=== PATIENT | male | born 1985 | race Caucasian/White ===

== ENCOUNTER 2020-09-25 02:58 | Observation (INO) | payer OTHER, SELFPAY ==
[2020-09-25] VITALS (10 sets, daily range): BP systolic 109–137; BP diastolic 66–77; PULSE 73–117; RESP 16–18; TEMP 36.2–37.8; O2SAT 97–100; BMI 25.2
--- NOTE | ~2020-09-25 | XR_ITS ---
EXAMINATION: XR chest 2V DATE: 09/25/2020 10:00 INDICATION: Shortness of breath, possible aspiration TECHNIQUE: AP and lateral views of the chest are obtained. COMPARISON: None available FINDINGS: There are airspace opacities of the lingula and left upper lobe. There is no pleural effusi on or pneumothorax. The cardiomediastinal silhouette is normal. The visualized bones and soft tissues are unremarkable. IMPRESSION: 1. Lingular and left upper lobe airspace opacities, consistent with pneumonia. Reviewed, dictated and finalized at location A. [employer] SE[employer]
--- NOTE | 2020-09-25 01:50 | ADMGEN ---
This patient, Travis Medina, was admitted to 3 [facility] Surg Room 325-01. Patient/family oriented to hospital policies and general routines including ID bracelet, bed and alarms, visiting hours, pain management, procedures, bathroom and other care routines, personal items, smoking policy, room service/diet, and visiting hours. Information on how to activate the Rapid Response Team has been discussed. Patient/Family are encouraged to report perceived risks to care and to ask questions if they do not understand what they are told or what they should do.
--- NOTE | 2020-09-25 02:08 | PM.IMHP ---
H&P: HPI History of Present Illness Date/Time: 09/25/20 02:08 Chief Complaint: Seizure Narrative: Travis Medina is a 34 year old male past medical history of sinus tachycardia and seizure disorder presents to the ED with complaints of seizure. Was sitting at home watching TV when he had a tonic-clonic seizure witnessed by his . The seizure stopped on its own. Patient had missed doses of his seizure medications for last 3-4 days because the pharmacy was closed for the holidays. His seizure medications are managed by his PCP and no recent changes. He states his seizures onset were in adulthood and is unclear as to the etiology of what causes them. He may have bit his lip during the seizure with blood in his mouth. Currently on my exam patient is asymptomatic. Patient did not take any vitamins or any other substances. Patient denies smoking or alcohol use. The last time he had a seizure was in April. In the ED: Patient was given ibuprofen, ketorolac, Zofran x2, Compazine, fosphenytoin loading, Zosyn for aspiration. Chest x-ray shows mild suddenly opacity left perihilar region possibly due to aspiration. Telemetry shows normal sinus rhythm rate 117. In the ED patient stated he had a headache and received ibuprofen, ketorolac. For his seizures and missing doses he was loaded with fosphenytoin, Dilantin level was undetected. For the aspiration seen on chest x-ray was given Zosyn, WBC also elevated at 19.5. Potassium 3.2. patient was admitted to [facility] for high-level care. Review of Systems Review of Systems: Narrative: Constitutional: No Fever, No Chills, No Night Sweats, No Fatigue, No Malaise ENT/Mouth: No Hearing Changes, No Ear Pain, No Nasal Congestion, No Sinus Pain, No Hoarseness, No sore throat, No Rhinorrhea, No Swallowing Difficulty Eyes: No Eye Pain, No Redness, No Vision Changes Cardiovascular: No Chest Pain, No Palpitations, No Dyspnea on Exertion, No Orthopnea, No Claudication, No Edema Respiratory: No Cough, No Sputum, No Wheezing, No Shortness of Breath Gastrointestinal: No Nausea, No Vomiting, No Diarrhea, No Constipation, No Abdominal Pain, No Heartburn, No Hematochezia, No Melena Genitourinary: No Dysuria, No Urinary Frequency, No Hematuria, No Urinary Incontinence, No Urgency Musculoskeletal: No Arthralgias, No Myalgias, No Joint Swelling, No Joint Stiffness, No Back Pain Skin: No Skin Lesions, No Pruritis, No Hair Changes Neuro: No Weakness, No Numbness, No Paresthesias, No Loss of Consciousness, No Syncope, No Dizziness, No Headache Psych: No Anxiety/Panic, No Depression, No Insomnia Heme: No Bruising, No Bleeding Lymph: No Adenopathy Endocrine: No Polyuria, No Polydipsia, No Temperature Intolerance [facility] Past Medical History Medical History (Updated 09/25/20 @ 03:20 by Olvin Waldrop DO) 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 His [id number] helps out since he is unemployed. Smoking packs per day: 0.5 Smoking cigarettes per day: 10.0 Years smoked: 10 Smoking pack-years: 5.00 Smoking status: Former smoker Tobacco type: cigarettes Alcohol intake: never Substance use: never Living arrangements: with family Additional living arrangements comments: Lives with Occupation/Education: unemployed Gender identity (if verbalized by the patient): Male Sexual Orientation (if Verbalized by the Patient): Straight or Heterosexual Spiritual care concerns: No Meds Home Medications and Allergies Home Medications Medication Instructions Recorded Confirmed Type lacosamide [Vimpat] 100 mg PO BID 09/25/20 09/25/20 History metoprolol succinate 50 mg PO DAILY 09/25
[2020-09-25 07:00] LABS: Basophils Absolute Auto 0.1 K/mm3 (0.0-0.1); Basophils Percent Auto 0.3 % (0.2-1.2); Eosinophils Percent Auto 0.1 % (0-4.4); Hematocrit 42.3 % (42.0-52.0); Hemoglobin 14.6 g/dL (14.0-18.0); Immature Granulocyte Absolute 0.09 K/mm3 (0.00-0.031); Immature Granulocyte Percent A 0.5 % (0-0.5); Lymphocytes Absolute Auto 2.15 K/mm3 (0.9-3.2); Lymphocytes Percent Auto 11.6 % (18.3-44.2); Mean Corpuscular HGB Conc 34.5 g/dl (32-36); Mean Corpuscular Hemoglobin 28.9 pg (26-34); Mean Corpuscular Volume 83.8 fl (80-100); Mean Platelet Volume 9.2 fl (7.4-10.4); Monocytes Absolute Auto 1.7 K/mm3 (0.1-0.6); Monocytes Percent Auto 9.1 % (2.6-8.5); Neutrophils Absolute Auto 14.6 K/mm3 (1.3-6.7); Neutrophils Percent Auto 78.4 % (45.5-73.1); Platelet Count Result 251 k/mm3 (150-375); Red Blood Count 5.05 M/mm3 (4.6-6.20); Red Cell Distribution Width 13.1 % (11.5-14.5); White Blood Count 18.6 K/mm3 (4.5-10.0)
[2020-09-25 07:20] LABS: Anion Gap 10 mmol/L (8-16); Blood Urea Nitrogen 19 mg/dL (9-20); Calcium 8.7 mg/dL (8.4-10.2); Carbon Dioxide 26 mmol/L (22-30); Chloride 103 mmol/L (98-107); Estimated CRCL calculation 95 ml/min; Estimated Glomerular Filt Rate > 60; Glucose 134 mg/dL (75-110); Magnesium 2.2 mg/dL (1.6-2.3); Potassium 3.7 mmol/L (3.4-5.0); Sodium 139 mmol/L (137-145)
[2020-09-25] MEDS: LACOSAMIDE (*CRX) 100 MG TABLET PO ×2 (07:55→15:50)
[2020-09-25] MEDS: PHENYTOIN SODIUM 100 MG CAP 200 MG PO ×2 (07:56→15:50)
[2020-09-25] MEDS: METOPROLOL SUCCINATE EXT REL 50 MG TABCR PO (07:56)
[2020-09-25] MEDS: ZONISAMIDE 100 MG CAPSULE 300 MG PO (07:56)
--- NOTE | 2020-09-25 14:36 | PM.DS ---
DS: Admitting Diagnosis Admitting Diagnosis Admitting Diagnosis: Seizure DS: Discharge Diagnosis Discharge Diagnosis (1) Seizures: Code(s): R56.9 - Unspecified convulsions Status: Acute Assessment and Plan: Date of Admission 09/25/20 Date of Discharge/DOS 09/25/20 Mr. Medina is a 34yo M with history of seizure disorder and sinus tachycardia who presented to our facility from outside hospital in [place] for evaluation after a seizure. He is known to have seizure disorder maintained on a regimen including Vimpat, Dilantin, and Zonegran, and his last seizure prior to this was around May. He ran out of his Vimpat several days ago, unfortunately suffered a tonic-clonic seizure at home witnessed by his . Seizure resolved on its own at home. Dilantin level low on arrival. He was noted to have pulmonary infiltrates on chest XR and was started on IV zosyn for treatment of possible aspiration pneumonitis or pneumonia. He was tolerating room air with adequate O2 saturations afternoon of discharge without respiratory complaints. He was discharged with oral Augmentin for coverage. He was educated on the importance of taking his anti-epileptic medications as prescribed and to use caution to make sure he obtains refills before his medications run out. His PCP manages these medications, and he was strongly encouraged to follow up with PCP as soon as possible. Prescription for his Vimpat was provided at discharge. He is noted to have leukocytosis on routine labs, suspect secondary to seizure activity or possible pneumonia. Provided an order for repeat CBC at discharge to monitor WBC, follow up with PCP. (2) Sinus tachycardia: Code(s): R00.0 - Tachycardia, unspecified Status: Acute Assessment and Plan: -chronic, stable, continue home metoprolol 50 mg daily (3) Aspiration pneumonia: Code(s): J69.0 - Pneumonitis due to inhalation of food and vomit Status: Acute Assessment and Plan: -patient likely aspirated from the seizure. Likely aspiration pneumonitis as opposed to pneumonia. -WBC elevated at 18, which may be from the seizure versus aspiration pneumonia -patient's lungs sound good and oxygen was weaned quickly, however chest x-ray did show some sign of aspiration pneumonia and patient has leukocytosis -Zosyn x 1 day, discharged with oral augmentin. DS: Summary Hospital Course Hospital Course: See above. Time Spent with Patient Time attestation: Total time spent providing and/or coordinating discharge services: 35 minutes Exam Narrative: Exam Narrative: - GENERAL: Pleasant male in no acute distress. - EYES: EOMI. Anicteric. - HENT: Moist mucous membranes. - LUNGS: Clear to auscultation bilaterally, no wheezing, rhonchi, or rales. Tolerating room air. - CARDIOVASCULAR: Regular rate and rhythm. No murmur. No JVD. - ABDOMEN: Soft, non-tender and non-distended. No palpable masses. - EXTREMITIES: No edema. Peripheral pulses 2+. Non-tender. Left foot great toe partial amputation. - NEUROLOGIC: No focal neurological deficits. CN II-XII grossly intact. - PSYCHIATRIC: Awake, Alert and oriented x 3. Appropriate mood and affect. - SKIN: No rashes or lesions. Warm. DS: Data Data Completed and Pending Labs on day of discharge: Last Vital Signs Temp 97.1 F L 09/25/20 14:00 Pulse 93 09/25/20 14:00 Resp 16 09/25/20 14:00 BP 111/66 09/25/20 14:00 Pulse Ox 98 09/25/20 14:00 ITS Impressions Chest X-Ray 09/25/20 15:29 IMPRESSION: 1. Lingular and left upper lobe airspace opacities, consistent with pneumonia. Laboratory Tests 09/25/20 06:36 09/25/20 06:36 Discharge Plan Discharge Attending physician on discharge: Carolyn Gandara Discharging Clinician: Ligia Mancia Anticipated Discharge Date/Time: 09/25/20 15:34 Patient Disposition: Home, Self-Care Activity: as tolerated Diet: as tolera
== END 2020-09-25 15:58 | disposition home or self-care (01) ==
PROVIDERS: Admitting Provider Student in an Organized Health Care Education/Training Program; PCP Family Medicine; Visit Provider Family Medicine
DX: G40.909 Epilepsy, unspecified, not intractable, without status epilepticus (principal); R00.0 Tachycardia, unspecified; J69.0 Pneumonitis due to inhalation of food and vomit; D72.829 Elevated white blood cell count, unspecified
CPT/HCPCS: 36415; 71046; 80048; 83735; 85025; 96365; 96366; A9270; G0378; G0379; J2543